=== PATIENT | female | born 1940 | race African-American/Black ===

== ENCOUNTER → 2018-04-09 | Outpatient (CLI) | payer MEDICARE, MEDICAID ==
[~2018-04-09] MED LIST: BARIUM SULFATE 450ML ORAL SUSP ONE; BENA20TA10 PO; CHOL500010 PO; DIVA-18 PO; DOCU-150 PO; GLIP10TA10 PO; IBUP-2028 PO; METO-396 PO; QUET25TA PO; QUET300T2 PO; SIMV20TA6 PO; [UNRECOGNIZED DRUG - CODE] PO
== END | disposition home or self-care (01) ==
LOC: CT 07:42
PROVIDERS: ATTEND Internal Medicine Gastroenterology
DX: K76.89 Other specified diseases of liver (principal); D64.9 Anemia, unspecified; I10 Essential (primary) hypertension; E11.9 Type 2 diabetes mellitus without complications; E78.5 Hyperlipidemia, unspecified; Z88.8 Allergy status to other drugs, medicaments and biological substances
CPT/HCPCS: 71250; 74176

== ENCOUNTER 2018-04-22 07:24 | Inpatient (IN) | payer MEDICARE, MEDICAID ==
[~2018-04-22] VITALS: Ht 167.6 cm; Wt 60.1 kg
[~2018-04-22 07:24] MED LIST changes: -BARIUM SULFATE 450ML ORAL SUSP ONE
[2018-04-22] MEDS ORDERED: DEXTROSE 50% WATER 50ML SYRINGE IV ONE ×3 (08:45→11:07)
[2018-04-22 09:12] LABS: BASOPHILS % 0.2 % (0.0-2.0); EOSINOPHILS % 8.5 % (0.0-5.0); HEMATOCRIT. 36.1 % (36.0-48.0); HEMOGLOBIN. 11.7 g/dL (12.0-16.0); LYMPHOCYTES % 18.2 % (20.0-50.0); MEAN CORPUSCULAR HEMOGLOBIN 29.4 pg (28.0-32.0); MEAN CORPUSCULAR VOLUME 90.8 fL (81.0-99.0); MEAN PLATELET VOLUME 7.8 fl (7.4-10.4); MONOCYTES % 6.6 % (2.0-8.0); NEUTROPHILS % 66.5 % (40.0-76.0); PLATELET 230 x1000/uL (130-400); RED BLOOD CELL COUNT 3.97 mill/uL (4.2-5.4); RED CELL DISTRIBUTION WIDTH 16.9 % (11.6-14.6)
[2018-04-22 09:16] LABS: CHLORIDE 108 mEq/L (98-107)
[2018-04-22 09:19] LABS: INR 1.1; PROTHROMBIN TIME 11.2 sec (9.1-11.1)
[2018-04-22] MEDS ORDERED: DEXTROSE 10% WATER 250 ML IV ONE (11:00)
[2018-04-22 11:52] LABS: CLARITY URINE CLEAR (CLEAR); COLOR URINE YELLOW (YELLOW); KETONES URINE NEGATIVE (NEGATIVE); LEUKOCYTE ESTERASE URINE TRACE (NEGATIVE); NITRITE URINE NEGATIVE (NEGATIVE); OCCULT BLOOD URINE NEGATIVE (NEGATIVE); PH URINE 5.5 (4.5-8.0); PROTEIN URINE NEGATIVE (NEGATIVE); SPECIFIC GRAVITY URINE 1.015 (1.005-1.030)
[2018-04-22] MEDS ORDERED: CEFTRIAXONE 1 G PREMIX 50 ML IV ONE (12:15)
[2018-04-22 19:00] VITALS: BP 129/86
[2018-04-22 20:00] VITALS: BP 116/33
[2018-04-23] VITALS: BP 121/81
[2018-04-23] MEDS ORDERED: ACETAMINOPHEN 325MG TABLET PO PRN
[2018-04-23] MEDS ORDERED: HYDROCODONE/ACETAMINOPHEN 5/325MG TABLET PO PRN
[2018-04-23] MEDS ORDERED: NA PHOS,M-B/NA PHOS,DI-BA ENEMA 118ML PR PRN
[2018-04-23] MEDS ORDERED: DEXTROSE 50% WATER 50ML SYRINGE IV PRN
[2018-04-23] MEDS ORDERED: ENOXAPARIN 40MG/0.4ML SYR SUBCUT SCH
[2018-04-23] MEDS ORDERED: LORAZEPAM 0.5MG TABLET PO PRN
[2018-04-23] MEDS ORDERED: ONDANSETRON HCL 4MG/2ML VIAL IV PRN
[2018-04-23] MEDS ORDERED: CLONIDINE 0.1MG TABLET PO PRN
[2018-04-23] MEDS: DEXT 5%/0.45% NACL 1000ML 1,000 ML IV SCH ×2 (00:25→14:47)
[2018-04-23 04:00] VITALS: BP 123/80
[2018-04-23] MEDS: BLOOD SUGAR DIAGNOSTIC STRIP TEST SCH ×4 (07:10→21:49)
[2018-04-23 07:44] LABS: BASOPHILS % 0.4 % (0.0-2.0); EOSINOPHILS % 11.8 % (0.0-5.0); HEMATOCRIT. 35.4 % (36.0-48.0); HEMOGLOBIN. 11.7 g/dL (12.0-16.0); LYMPHOCYTES % 22.3 % (20.0-50.0); MEAN CORPUSCULAR VOLUME 90.6 fL (81.0-99.0); MONOCYTES % 8.4 % (2.0-8.0); NEUTROPHILS % 57.1 % (40.0-76.0); PLATELET 212 x1000/uL (130-400); RED BLOOD CELL COUNT 3.91 mill/uL (4.2-5.4); RED CELL DISTRIBUTION WIDTH 16.9 % (11.6-14.6)
[2018-04-23 08:00] VITALS: BP 140/92
[2018-04-23 08:10] LABS: CHLORIDE 106 mEq/L (98-107)
[2018-04-23] MEDS: ASPIRIN 81MG EC TABLET PO SCH (08:30)
[2018-04-23] MEDS ORDERED: AMLODIPINE 10MG TABLET PO SCH (09:00)
[2018-04-23] MEDS ORDERED: ENOXAPARIN 30MG/0.3ML SYR SUBCUT SCH (09:00)
[2018-04-23 11:45] VITALS: BP 142/82
[2018-04-23] MEDS ORDERED: LEVOFLOXACIN 500MG PREMIX 100 ML IV SCH (12:30)
[2018-04-23 16:00] VITALS: BP 133/84
[2018-04-23 20:00] VITALS: BP 142/90
[2018-04-23] MEDS: INSULIN LISPRO 100 UNITS/ML SUBCUT SCH (21:48)
[2018-04-23] MEDS: AMLODIPINE 5MG TABLET PO SCH ×2 (21:48→21:58)
[2018-04-23] MEDS: ONDANSETRON 4MG ODT PO PRN (21:58)
[2018-04-24] VITALS: BP 138/85
[2018-04-24 04:00] VITALS: BP 120/80
[2018-04-24] MEDS: INSULIN LISPRO 100 UNITS/ML SUBCUT SCH ×4 (06:20→21:00)
[2018-04-24] MEDS: BLOOD SUGAR DIAGNOSTIC STRIP TEST SCH ×4 (06:20→21:33)
[2018-04-24 07:05] LABS: BASOPHILS % 0.4 % (0.0-2.0); EOSINOPHILS % 1.2 % (0.0-5.0); HEMATOCRIT. 36.1 % (36.0-48.0); LYMPHOCYTES % 24.9 % (20.0-50.0); MEAN CORPUSCULAR VOLUME 90.1 fL (81.0-99.0); MEAN PLATELET VOLUME 7.7 fl (7.4-10.4); MONOCYTES % 8.7 % (2.0-8.0); NEUTROPHILS % 64.8 % (40.0-76.0); PLATELET 229 x1000/uL (130-400); RED BLOOD CELL COUNT 4.01 mill/uL (4.2-5.4); RED CELL DISTRIBUTION WIDTH 16.8 % (11.6-14.6)
[2018-04-24 07:17] LABS: CHLORIDE 107 mEq/L (98-107)
[2018-04-24 08:00] VITALS: BP 123/81
[2018-04-24] MEDS: ASPIRIN 81MG EC TABLET PO SCH (09:27)
[2018-04-24] MEDS: AMLODIPINE 5MG TABLET PO SCH ×2 (09:28→21:33)
[2018-04-24] MEDS: ENOXAPARIN 40MG/0.4ML SYR SUBCUT SCH (09:28)
[2018-04-24 11:52] VITALS: BP 117/90
[2018-04-24] MEDS: LEVOFLOXACIN 250MG PREMIX 50 ML IV SCH (11:59)
[2018-04-24] MEDS: DEXT 5%/0.45% NACL 1000ML 1,000 ML IV SCH (11:59)
[2018-04-24] MEDS: ONDANSETRON 4MG ODT PO PRN (13:30)
[2018-04-24 15:52] VITALS: BP 103/74
[2018-04-24 20:00] VITALS: BP 113/70
[2018-04-25] VITALS: BP 104/67
[2018-04-25 04:00] VITALS: BP 111/73
[2018-04-25] MEDS: BLOOD SUGAR DIAGNOSTIC STRIP TEST SCH ×4 (06:38→20:38)
[2018-04-25] MEDS: DEXT 5%/0.45% NACL 1000ML 1,000 ML IV SCH ×2 (06:40→16:18)
[2018-04-25] MEDS: INSULIN LISPRO 100 UNITS/ML SUBCUT SCH ×4 (06:40→20:38)
[2018-04-25 08:00] VITALS: BP 123/86
[2018-04-25] MEDS: ASPIRIN 81MG EC TABLET PO SCH (10:15)
[2018-04-25] MEDS: AMLODIPINE 5MG TABLET PO SCH ×2 (10:15→20:35)
[2018-04-25] MEDS: ENOXAPARIN 40MG/0.4ML SYR SUBCUT SCH (10:15)
[2018-04-25] MEDS: LEVOFLOXACIN 250MG PREMIX 50 ML IV SCH (10:16)
[2018-04-25 12:00] VITALS: BP 106/58
[2018-04-25 16:00] VITALS: BP 117/82
[2018-04-25 20:00] VITALS: BP 112/85
[2018-04-25] MEDS: ATORVASTATIN CALCIUM 10MG TABLET PO SCH (20:35)
[2018-04-26] VITALS (7 sets, daily range): BP systolic 109–120; BP diastolic 67–79
[2018-04-26] MEDS: DEXT 5%/0.45% NACL 1000ML 1,000 ML IV SCH ×2 (05:48→17:55)
[2018-04-26] MEDS: BLOOD SUGAR DIAGNOSTIC STRIP TEST SCH ×4 (06:10→20:45)
[2018-04-26] MEDS: INSULIN LISPRO 100 UNITS/ML SUBCUT SCH ×4 (06:11→20:45)
[2018-04-26] MEDS: AMLODIPINE 5MG TABLET PO SCH ×2 (08:40→21:25)
[2018-04-26] MEDS: ASPIRIN 81MG EC TABLET PO SCH (08:40)
[2018-04-26] MEDS: ENOXAPARIN 40MG/0.4ML SYR SUBCUT SCH (08:41)
[2018-04-26] MEDS: LEVOFLOXACIN 250MG PREMIX 50 ML IV SCH (11:53)
[2018-04-26] MEDS: ATORVASTATIN CALCIUM 10MG TABLET PO SCH (21:24)
[2018-04-27] VITALS: BP 105/63
[2018-04-27 04:00] VITALS: BP 111/73
[2018-04-27] MEDS: BLOOD SUGAR DIAGNOSTIC STRIP TEST SCH ×4 (05:57→20:31)
[2018-04-27] MEDS: INSULIN LISPRO 100 UNITS/ML SUBCUT SCH ×4 (06:06→20:35)
[2018-04-27 08:00] VITALS: BP 108/65
[2018-04-27] MEDS: AMLODIPINE 5MG TABLET PO SCH ×2 (08:34→20:32)
[2018-04-27] MEDS: ASPIRIN 81MG EC TABLET PO SCH (08:37)
[2018-04-27] MEDS: DEXT 5%/0.45% NACL 1000ML 1,000 ML IV SCH ×2 (08:37→18:39)
[2018-04-27] MEDS: ENOXAPARIN 40MG/0.4ML SYR SUBCUT SCH (08:38)
[2018-04-27] MEDS: LEVOFLOXACIN 250MG PREMIX 50 ML IV SCH (10:18)
[2018-04-27 12:00] VITALS: BP 122/76
[2018-04-27 16:00] VITALS: BP 118/64
[2018-04-27 20:00] VITALS: BP 115/65
[2018-04-27] MEDS: ATORVASTATIN CALCIUM 10MG TABLET PO SCH (20:31)
[2018-04-28] VITALS: BP 107/64
[2018-04-28 04:00] VITALS: BP 109/64
[2018-04-28] MEDS: BLOOD SUGAR DIAGNOSTIC STRIP TEST SCH ×4 (06:06→20:38)
[2018-04-28] MEDS: INSULIN LISPRO 100 UNITS/ML SUBCUT SCH ×4 (06:11→20:37)
[2018-04-28 07:30] VITALS: BP 126/78
[2018-04-28] MEDS: ENOXAPARIN 40MG/0.4ML SYR SUBCUT SCH (08:29)
[2018-04-28] MEDS: ASPIRIN 81MG EC TABLET PO SCH (08:29)
[2018-04-28] MEDS: AMLODIPINE 5MG TABLET PO SCH ×2 (08:29→20:40)
[2018-04-28] MEDS: ONDANSETRON 4MG ODT PO PRN (08:41)
[2018-04-28] MEDS ORDERED: LEVOFLOXACIN 500MG TABLET PO SCH (11:00)
[2018-04-28] MEDS: LEVOFLOXACIN 250MG TABLET PO SCH (11:28)
[2018-04-28 12:00] VITALS: BP 116/80
[2018-04-28] MEDS: DEXT 5%/0.45% NACL 1000ML 1,000 ML IV SCH (12:59)
[2018-04-28 16:00] VITALS: BP 146/62
[2018-04-28 20:00] VITALS: BP 115/75
[2018-04-28] MEDS: ATORVASTATIN CALCIUM 10MG TABLET PO SCH (20:40)
[2018-04-29] VITALS: BP 118/68
[2018-04-29] MEDS: DEXT 5%/0.45% NACL 1000ML 1,000 ML IV SCH ×2 (02:47→17:06)
[2018-04-29 04:00] VITALS: BP 117/73
[2018-04-29] MEDS: BLOOD SUGAR DIAGNOSTIC STRIP TEST SCH ×4 (06:12→20:47)
[2018-04-29] MEDS: INSULIN LISPRO 100 UNITS/ML SUBCUT SCH ×4 (06:33→20:47)
[2018-04-29 08:00] VITALS: BP 131/67
[2018-04-29] MEDS: AMLODIPINE 5MG TABLET PO SCH ×2 (08:48→20:55)
[2018-04-29] MEDS: ASPIRIN 81MG EC TABLET PO SCH (08:49)
[2018-04-29] MEDS: ENOXAPARIN 40MG/0.4ML SYR SUBCUT SCH (08:53)
[2018-04-29] MEDS: LEVOFLOXACIN 250MG TABLET PO SCH (09:58)
[2018-04-29 11:53] VITALS: BP 116/78
[2018-04-29 16:00] VITALS: BP 109/83
[2018-04-29 20:00] VITALS: BP 121/70
[2018-04-29] MEDS: ATORVASTATIN CALCIUM 10MG TABLET PO SCH (20:55)
[2018-04-30] VITALS: BP 122/68
[2018-04-30 04:00] VITALS: BP 118/75
[2018-04-30] MEDS: BLOOD SUGAR DIAGNOSTIC STRIP TEST SCH ×2 (06:07→11:39)
[2018-04-30] MEDS: INSULIN LISPRO 100 UNITS/ML SUBCUT SCH ×2 (06:07→12:08)
[2018-04-30 08:00] VITALS: BP 119/69
[2018-04-30] MEDS: AMLODIPINE 5MG TABLET PO SCH (08:25)
[2018-04-30] MEDS: ENOXAPARIN 40MG/0.4ML SYR SUBCUT SCH (08:25)
[2018-04-30] MEDS: ASPIRIN 81MG EC TABLET PO SCH (08:25)
[2018-04-30] MEDS: LEVOFLOXACIN 250MG TABLET PO SCH (10:32)
[2018-04-30 10:42] VITALS: BP_SYST 103; BP_SYST 124; BP_DIAS 68; BP_DIAS 73
[2018-04-30 11:55] VITALS: BP 103/73
== END 2018-04-30 16:16 | DRG 871 ==
LOC: ER 07:24 → 8WST 12:39 → EDBEDREQ 12:43 → ENRESERV 18:03
PROVIDERS: ADMIT Hospitalist; ATTEND Hospitalist
DX: A41.9 Sepsis, unspecified organism (principal); G92 Toxic encephalopathy; N39.0 Urinary tract infection, site not specified; N17.9 Acute kidney failure, unspecified; E11.649 Type 2 diabetes mellitus with hypoglycemia without coma; B96.20 Unspecified Escherichia coli [E. coli] as the cause of diseases classified elsewhere; I10 Essential (primary) hypertension; F20.9 Schizophrenia, unspecified; F03.90 Unspecified dementia, unspecified severity, without behavioral disturbance, psychotic disturbance, mood disturbance, and anxiety; L89.150 Pressure ulcer of sacral region, unstageable; W18.30XA Fall on same level, unspecified, initial encounter; Y93.89 Activity, other specified; Y92.091 Bathroom in other non-institutional residence as the place of occurrence of the external cause; Y99.8 Other external cause status
CPT/HCPCS: 36415; 70450; 71045; 80053; 81003; 82962; 84134; 85025; 85610; 87077; 87086; 87186; 93005; 93970; 97116; 97162; 99285; C1893; J0696; J1650; J1815; J1956; J3490; J7030; Q0162